=== PATIENT | female | born 1995 | race Caucasian/White ===

== ENCOUNTER → 2016-11-20 | Outpatient (CLI) | payer MEDICAID ==
[~2016-11-20] MED LIST: AMOX500C2 PO; FERR-57 PO; IBUP200C PO; IRON45TA2 PO; PREN1TAB71 PO
--- NOTE | 2016-11-20 16:44 | Diagnostic Imaging Report ---
EXAM: OB ultrasound. INDICATION: survey. COMPARISON: 09/26/2016. FINDINGS: The heart rate is 142 bpm. The placenta is fundal. No placenta previa. The cervix is long and closed. There is no ventriculomegaly. The posterior fossa appears unremarkable. Two umbilical arteries are seen. The urinary bladder appears unremarkable. The spine demonstrates no definite abnormality. The four-chamber view is not well-evaluated due to position. The stomach is seen. No hydronephrosis or cystic mass in the kidneys is noted. The growth parameters are are all around 20 weeks and 1 day, normal for gestational age of 19 weeks and 5 days based on first trimester ultrasound dating. IMPRESSION: Appropriate interval growth. Followup study to evaluate the four-chamber view is recommended within 2-3 weeks. Dictated by: Dictated on workstation # [id number]
== END ==
LOC: RAD 14:41
PROVIDERS: ATTEND Family Medicine
DX: Z36 Encounter for antenatal screening of mother (principal)
CPT/HCPCS: 76805

== ENCOUNTER → 2016-12-26 | Outpatient (CLI) | payer MEDICAID ==
--- NOTE | 2016-12-26 17:25 | Diagnostic Imaging Report ---
INDICATION: Followup survey. COMPARISON: 11/20/2016. FINDINGS: Single live intrauterine fetus is present. Fetus is transverse with head to maternal right. heartbeat of 147 beats per minute. The placenta is posterior and does extend into the lower uterine segment which appears to represent a marginal previa. The heart is visualized though again a good four-chamber view was not obtained. This could be due to body habitus as well as position. IMPRESSION: 1. There is a 24 weeks 6 days by previous ultrasound. Again, the heart was not well visualized. Four-chamber view was not obtained. 2. Low-lying placenta with probable marginal previa. Dictated by: Dictated on workstation # [id number]
== END ==
LOC: RAD 14:05
PROVIDERS: ATTEND Family Medicine
DX: Z36 Encounter for antenatal screening of mother (principal); Z3A.24 24 weeks gestation of pregnancy
CPT/HCPCS: 76805

== ENCOUNTER 2017-01-01 23:00 | Outpatient (CLI) | payer MEDICAID ==
[~2017-01-01] VITALS: Ht 162.6 cm; Wt 119.1 kg
[2017-01-01 23:18] VITALS: BP 109/57
[2017-01-01] MEDS ORDERED: PREN1TAB71 PO (23:37)
[2017-01-01] MEDS ORDERED: ACETAMINOPHEN 500 MG TAB (TYLENOL) PO ONE (23:45)
--- NOTE | 2017-01-02 10:54 | Physician Query-Final Dx ---
RAMÍREZ CASSIDY 01/02/17 1054: Clinic Account Progress/Dx Physician Query: Please give diagnosis Date of Service Jan 01, 2017 at 23:00 YOVANI CARIAS MD 01/05/17 0726: Clinic Account Progress/Dx DIAGNOSIS: Diagnosis 1. Abdominal pain nonspecific 2. Intrauterine at 27 weeks gestation RAMÍREZ CASSIDY Jan 02, 2017 10:54 YOVANI CARIAS MD Jan 05, 2017 07:26
== END 2017-01-01 23:50 | disposition home or self-care (01) ==
LOC: WSo 23:00 → LDRP 23:01 → WSo 23:50
PROVIDERS: ATTEND Family Medicine
DX: O99.89 Other specified diseases and conditions complicating pregnancy, childbirth and the puerperium (principal); R10.9 Unspecified abdominal pain; Z3A.27 27 weeks gestation of pregnancy
CPT/HCPCS: 99213

== ENCOUNTER 2017-02-28 22:54 | Outpatient (CLI) | payer MEDICAID ==
[~2017-02-28] VITALS: Ht 162.6 cm; Wt 122.0 kg
[2017-02-28 23:10] VITALS: BP 124/62
[2017-03-01 00:27] LABS: BILIRUBIN,URINE NEGATIVE (NEGATIVE); KETONES,URINE NEGATIVE (NEGATIVE); LEUKOCYTE ESTERASE ,URINE 1+ (NEGATIVE); NITRITE,URINE NEGATIVE (NEGATIVE); PH,URINE 6 (5-9); PROTEIN,URINE 1+ (NEGATIVE); UROBILINOGEN,URINE 1 MG/DL (NORMAL)
[2017-03-01 00:36] LABS: WBC,URINE 0-2 /HPF
[2017-03-01 00:37] LABS: YEAST,URINE FEW /HPF
--- NOTE | 2017-03-02 11:27 | Physician Query-Final Dx ---
GHAZALA QUICK 03/02/17 1127: Clinic Account Progress/Dx Physician Query: Please give diagnosis Date of Service February 28, 2017 at 22:54 GRACE CARLSON MD 03/05/17 2151: Clinic Account Progress/Dx DIAGNOSIS: Diagnosis Pelvic Cramping Contractions GHAZALA QUICK March 02, 2017 11:27 GRACE CARLSON MD March 05, 2017 21:51
== END 2017-03-01 00:51 | disposition home or self-care (01) ==
LOC: WSo 22:54 → LDRP 22:54 → WSo 03-01 00:51
PROVIDERS: ATTEND Family Medicine
DX: O60.03 Preterm labor without delivery, third trimester (principal); O99.89 Other specified diseases and conditions complicating pregnancy, childbirth and the puerperium; R10.9 Unspecified abdominal pain; Z3A.34 34 weeks gestation of pregnancy
CPT/HCPCS: 81000; 99213

== ENCOUNTER 2017-03-25 12:45 | Outpatient (CLI) | payer MEDICAID ==
[~2017-03-25] VITALS: Ht 162.6 cm; Wt 122.9 kg
[2017-03-25 12:44] VITALS: BP 110/62
[2017-03-25 14:20] VITALS: BP 110/62
--- NOTE | 2017-03-26 13:02 | Physician Query-Final Dx ---
RAMÍREZ CASSIDY 03/26/17 1302: Clinic Account Progress/Dx Physician Query: Please give diagnosis Date of Service Mar 25, 2017 at 12:45 YOVANI CARIAS MD 04/02/17 0734: Clinic Account Progress/Dx DIAGNOSIS: Diagnosis 1. IUP at term, membranes intact and non labor RAMÍREZ CASSIDY Mar 26, 2017 13:02 YOVANI CARIAS MD Apr 02, 2017 07:34
== END 2017-03-25 14:20 | disposition home or self-care (01) ==
LOC: WSo 12:45 → LDRP 12:45 → WSo 14:20
PROVIDERS: ATTEND Family Medicine
DX: O26.93 Pregnancy related conditions, unspecified, third trimester (principal); Z3A.37 37 weeks gestation of pregnancy
CPT/HCPCS: 99213

== ENCOUNTER 2017-04-05 19:43 | Inpatient (IN) | payer MEDICAID ==
[~2017-04-05] VITALS: Ht 162.6 cm; Wt 123.2 kg
[2017-04-05] MEDS ORDERED: AMPICILLIN INJECTION 2,000 MG in NS (IVPB) 50 ML IV SCH (20:22)
[2017-04-05] MEDS ORDERED: NS (IVPB) 50 ML ONE (20:24)
[2017-04-05] MEDS ORDERED: AMPICILLIN 2000 MG INJECTION (IM/IV) ONE (20:25)
[2017-04-05] MEDS ORDERED: ZOLPIDEM 5 MG (AMBIEN) TAB PO PRN (20:30)
[2017-04-05] MEDS ORDERED: MINERAL OIL CONCENTRATE 99.9% 15 ML UDC TOP PRN (20:30)
[2017-04-05] MEDS ORDERED: DINOPROSTONE 10 MG (CERVIDIL) INSERT PV ONE (20:30)
[2017-04-05] MEDS: D5 LR IV SOLUTION 1,000 ML IV SCH (20:48)
[2017-04-05 21:00] VITALS: BP 142/76
[2017-04-05 21:02] LABS: BASOPHILS # (AUTO) 0.1 10^3/uL (0.0-0.1); BASOPHILS % (AUTO) 0 % (0-10); EOSINOPHILS # (AUTO) 0.2 10^3/uL (0.0-0.3); EOSINOPHILS % (AUTO) 1 % (0-10); LYMPHOCYTES # (AUTO) 2.7 X 10^3 (1.0-4.0); LYMPHOCYTES % (AUTO) 14 % (12-44); MEAN CORPUSCULAR HEMOGLOBIN 26 PG (25-34); MEAN CORPUSCULAR HGB CONC 33 G/DL (32-36); MEAN CORPUSCULAR VOLUME 79 FL (80-99); MEAN PLATELET VOLUME 10.9 FL (7.4-10.4); MONOCYTES % (AUTO) 10 % (0-12); NEUTROPHILS # (AUTO) 14.1 X 10^3 (1.8-7.8); NEUTROPHILS % (AUTO) 74 % (42-75); PLATELET COUNT 357 10^3/uL (130-400); RED BLOOD COUNT 4.03 10^6/uL (4.35-5.85); RED CELL DISTRIBUTION WIDTH 14.8 % (10.0-14.5); WHITE BLOOD COUNT 19.1 10^3/uL (4.3-11.0)
[2017-04-05] MEDS ORDERED: CATHETER FLUSH 10 ML SYR IV SCH (22:00)
[2017-04-06] VITALS (42 sets, daily range): BP systolic 78–137; BP diastolic 47–96
[2017-04-06] MEDS ORDERED: BUTORPHANOL INJ 2 MG/ML (STADOL) VIAL IV PRN
[2017-04-06] MEDS: AMPICILLIN INJECTION 1,000 MG in NS (IVPB) 50 ML IV SCH ×3 (00:35→07:55)
[2017-04-06] MEDS: D5 LR IV SOLUTION 1,000 ML IV SCH (06:15)
--- NOTE | 2017-04-06 07:15 | History & Physical-OB ---
OB - Chief Complaint & HPI Date/Time Date of Admission: Date of Admission: Apr 05, 2017 at 19:43 Time Seen by Provider: 07:10 Chief Complaint/History OB-Reason for Admission/Chief: Induction of Labor Hx : 3 Hx Para: 2 Expected Date of Delivery: Apr 11, 2017 Gestational Age in Weeks: 39 Gestational Age in Days: 2 Admission Nurse Assessment Rev: Yes History of Labs GBS positive Allergies and Home Medications Allergies Coded Allergies: No Known Drug Allergies (Unverified , 02/18/13) Home Medications Vit/Iron Fumarate/FA 1 Each Tablet, 1 EACH PO DAILY, (Reported) OB - History Hx of Present Care: Yes Ultrasounds: Normal mid trimester US Obstetrical Complications: None Medical Complications: None Obstetrical History Hx Termination: No Hx Multiple Gestation: No Hx Stillbirth: No Hx Complication: No Hx Induced Hypertens: No Hx Maternal Gestational Diabet: No Delivery History Hx Dystocia: No Hx Large For Gestational Age I: No Hx Small for Gestational Age I: No Hx Section: No Hx Vaginal Delivery Post C-Sec: No Hx Blood Disorders: No Adverse Rxn to Tranfusion: No Patient Past Medical History No chronic medical problems Social History/Family History HIV/AIDS: No Recent Infectious Disease Expo: No Sexually Transmitted Disease: No Alcohol Use: Denies Use Recreational Drug Use: No Immunizations Hepatitis A: No Hepatitis B: Yes Tetanus Booster (TDap): Less than 5yrs Date of Influenza Vaccine: Jun 30, 2016 OB - Admission Exam Physical Exam Date Seen by Provider: Apr 06, 2017 Time Seen by Provider: 07:10 Vitals: Vital Signs 04/06/17 04:00 Temp 98.0 Pulse 88 Resp 20 B/P (MAP) 108/67 O2 Delivery Room Air HEENT: Moist Membranes Heart: Rhythm Normal Lungs: Clear Abdomen: Gravid Cervical Dilatation: 2cm Effacement: 50% Station: -2 Membranes: Intact Heart Rate: 140's Accelerations: Accelerations Present Short Term Variability: Present Traffic Control Flagger Variability: Average (6-25) Contractions on Admission: >10 Minutes Apart Intensity: Mild Lofton Scoring Tool (Modified) Dilation (cm): 1-2cm (1) Effacement (%): 31-51% (1) Descent/Station: -2 (1) Cervix Consistency: Soft (2) Cervix Position: Middle/Mid-Position (1) Add 1 point for: Each previous vaginal delivery (1) Lofton Score: 7 Labs Laboratory Tests Test 04/05/17 20:45 Range/Units White Blood Count 19.1 H 4.3-11.0 10^3/uL Red Blood Count 4.03 L 4.35-5.85 10^6/uL Hemoglobin 10.4 L 11.5-16.0 G/DL Hematocrit 32 L 35-52 % Mean Corpuscular Volume 79 L 80-99 FL Mean Corpuscular Hemoglobin 26 25-34 PG Mean Corpuscular Hemoglobin Concent 33 32-36 G/DL Red Cell Distribution Width 14.8 H 10.0-14.5 % Platelet Count 357 130-400 10^3/uL Mean Platelet Volume 10.9 H 7.4-10.4 FL Neutrophils (%) (Auto) 74 42-75 % Lymphocytes (%) (Auto) 14 12-44 % Monocytes (%) (Auto) 10 0-12 % Eosinophils (%) (Auto) 1 0-10 % Basophils (%) (Auto) 0 0-10 % Neutrophils # (Auto) 14.1 H 1.8-7.8 X 10^3 Lymphocytes # (Auto) 2.7 1.0-4.0 X 10^3 Monocytes # (Auto) 2.0 H 0.0-1.0 X 10^3 Eosinophils # (Auto) 0.2 0.0-0.3 10^3/uL Basophils # (Auto) 0.1 0.0-0.1 10^3/uL OB - Assessment/Plan/Diagnosis Assessment Assessment: induction of labor Plan Plan: Induction (by cervidil) Other Plan -GBS prophylaxis -Patient desires epidural YOVANI CARIAS MD Apr 06, 2017 07:15
[2017-04-06] MEDS ORDERED: SUFENTA 0.6MCG/ML BUPIVA 0.125 100 ML ONE (07:30)
[2017-04-06] MEDS ORDERED: LACTATED RINGERS 1,000 ML IV ONE ×2 (07:42→09:46)
[2017-04-06] MEDS ORDERED: OXYTOCIN/NORMAL SALINE 500 ML IV SCH ×2 (08:06→11:55)
[2017-04-06] MEDS ORDERED: fentaNYL INJECTION 100 MCG/2 ML AMP ONE (09:35)
[2017-04-06] MEDS ORDERED: NALOXONE 0.4 MG/ML 1 ML (NARCAN) VIAL IV PRN ×2 (10:00)
[2017-04-06] MEDS ORDERED: METOCLOPRAMIDE INJ 10 MG/2 ML (REGLAN) IV PRN (10:00)
[2017-04-06] MEDS ORDERED: EPIDURAL (SUFENTA 0.6MCG/ML BUPIVA 0.125%) 100 ML BAG EPI PRN (10:00)
[2017-04-06] MEDS ORDERED: diphenhydrAMINE 50 MG/ML INJ (BENADRYL) IV PRN (10:00)
[2017-04-06] MEDS ORDERED: ONDANSETRON 4 MG/2 ML (SDV) Z0FRAN IV PRN (10:00)
[2017-04-06] MEDS ORDERED: MEPIVACAINE (CARBOCAINE) 2% 50 ML VIAL ONE (11:07)
--- NOTE | 2017-04-06 11:55 | OB Labor & Delivery Record ---
L&D History Date of Service Date of Service: Apr 06, 2017 History Expected Date of Delivery: Apr 11, 2017 Gestational Age in Weeks: 39 Hx : 3 Hx Para: 3 Complications Events: Routine care Operative Indications (Cesarea: N/A-Vaginal Delivery Intrapartal Events: None Other Complications GBS positive vag culture at 36 weeks and treated in labor with ampicillin. L&D Stage1 Stage One Onset of Labor - Date: Apr 06, 2017 Onset of Labor - Time: 07:04 Monitors and Tracing Monitor Mode: Internal Heart Rate: 130 Monitor Accelerations: Uniform Monitor Decelerations: Early Station: -3 Short Term Variability: Present Presentation: Vertex Vital Signs VS - Last 72 Hours, by Label 04/05/17 04/06/17 04/06/17 04/06/17 21:00 01:00 04:00 07:15 Temp 98.7 97.9 98.0 97.1 Pulse 100 86 88 83 Resp 20 20 20 20 B/P (MAP) 142/76 108/65 108/67 135/94 O2 Delivery Room Air Room Air Room Air Room Air 04/06/17 04/06/17 04/06/17 07:30 07:45 08:00 Temp 97.2 Pulse 75 80 80 Resp 20 18 18 B/P (MAP) 135/84 136/91 136/91 O2 Delivery Room Air Room Air Room Air Signs of Distress by FHT Signs of Distress No but irregular heart rhythm noted. Rupture of Membranes Spontaneous Ruture of Membrane: No Amniotic Membrane Rupture Time: 0704 Amniotic Membrane Fluid Desc.: Clear Induction/Anesthesia Epidural Cath Placement - Time: 09:00 L&D Stage2 Stage Two Stage II Date: Apr 06, 2017 Stage II Time: 11:36 Monitors and Tracing Monitor Mode: Internal Heart Rate: 130 Monitor Accelerations: Uniform Monitor Decelerations: None Technical Services Coordinator Variability: Average (6-10) Short Term Variability: Present Position: Left Occiput Anterior Presentation: Vertex Signs of Distress by FHT Signs of Distress no Cord Descript/Complications Cord Vessel Description: 3 Vessels Delivery Type Delivery Method: Spontaneous Vaginal Episiotomy/Perineal Laceration Laceraction(s)/Extensions: No Episiotomy Description: Periurethral Extnsion/lac (R--without repair), Perineal Extension/lac (minor with 2 stiches) Sutures Used: Vicryl Condition of Infant Delivery 1 minute Comment: 8 5 minute Comment: 9 Condition of Condition of Infant: Living Exam: No Observed Abnormalities Resuscitation Resuscitation: N/A - Spontaneous Resp L&D Stage3 Stage Three Stage III Date: Apr 06, 2017 Stage III Time: 11:40 Pictocin Pitocin ml/hr: 125 Placenta Delivery Placenta Delivery: Spontaneous Delivery Summary Summary 200 Condition of Delivery Examined: Cervix Examined Post Hemorrhage: No YOVANI CARIAS MD Apr 06, 2017 11:55
[2017-04-06] MEDS ORDERED: MEASLES,MUMPS,RUBELLA 1 EA INJ SQ ONE (12:00)
[2017-04-06] MEDS ORDERED: WITCH HAZEL(TUCKS) 40 EA JAR TOP PRN (12:00)
[2017-04-06] MEDS ORDERED: APAP 300 MG/CODEINE 30 MG (TYLENOL #3) TAB PO PRN (12:00)
[2017-04-06] MEDS ORDERED: BENZOCAINE/MENTHOL (DERMOPLAST) 56 ML CAN TP PRN (12:00)
[2017-04-06] MEDS ORDERED: TETANUS,DIPTH,PERTUSS P/F (BOOSTRIX) 0.5 ML VIAL IM ONE (12:00)
[2017-04-06] MEDS: IBUPROFEN 600 MG (MOTRIN) TAB PO SCH ×2 (13:07→20:20)
[2017-04-06] MEDS ORDERED: CATHETER FLUSH 10 ML SYR IV SCH (14:00)
[2017-04-07 03:50] VITALS: BP 128/73
[2017-04-07] MEDS: IBUPROFEN 600 MG (MOTRIN) TAB PO SCH ×2 (03:50→10:13)
[2017-04-07] MEDS ORDERED: PRENATAL VITAMIN 1 EA TAB PO SCH (07:00)
[2017-04-07 07:17] LABS: BASOPHILS # (AUTO) 0.1 10^3/uL (0.0-0.1); BASOPHILS % (AUTO) 0 % (0-10); EOSINOPHILS # (AUTO) 0.4 10^3/uL (0.0-0.3); EOSINOPHILS % (AUTO) 2 % (0-10); LYMPHOCYTES # (AUTO) 3.4 X 10^3 (1.0-4.0); LYMPHOCYTES % (AUTO) 18 % (12-44); MEAN CORPUSCULAR HEMOGLOBIN 26 PG (25-34); MEAN CORPUSCULAR HGB CONC 32 G/DL (32-36); MEAN CORPUSCULAR VOLUME 81 FL (80-99); MEAN PLATELET VOLUME 11.3 FL (7.4-10.4); MONOCYTES # (AUTO) 1.7 X 10^3 (0.0-1.0); MONOCYTES % (AUTO) 9 % (0-12); NEUTROPHILS # (AUTO) 13.5 X 10^3 (1.8-7.8); NEUTROPHILS % (AUTO) 71 % (42-75); PLATELET COUNT 307 10^3/uL (130-400); RED BLOOD COUNT 3.69 10^6/uL (4.35-5.85); WHITE BLOOD COUNT 19.1 10^3/uL (4.3-11.0)
--- NOTE | 2017-04-07 07:59 | Discharge Summary ---
Diagnosis/Chief Complaint Date of Admission Apr 05, 2017 at 19:43 Date of Discharge April 07, 2017 Discharge Date: Apr 07, 2017 Discharge Time: 08:00 Admission Diagnosis Admission Diagnosis 1. Intrauterine at 39 weeks gestation Discharge Diagnosis 1. Intrauterine at 39 weeks gestation Reason Hospital Visit 22-year-old 3 now term 3 female who initially presented for induction of labor during the evening of April 05, 2017. Patient was noted to be at 39 weeks 2 days gestation on presentation. Her care was essentially unremarkable. Discharge Summary-OBS Procedures 1. Epidural per anesthesia 2. Spontaneous vaginal delivery 3. Repair of minimal perineal tear midline Discharge Physical Examination Allergies: Coded Allergies: No Known Drug Allergies (Unverified , 02/18/13) Vitals & I&Os Vital Signs Date Time Temp Pulse Resp B/P (MAP) Pulse Ox O2 Delivery O2 Flow Rate FiO2 04/07/17 03:50 96.7 88 18 128/73 97 Room Air General Appearance: Alert, No Acute Distress Respiratory: Clear to Auscultation Cardiovascular: Regular Rate Abdominal: Soft (with uterus firm) Hospital Course following admission patient underwent routine labor coarse. She received epidural and tolerated well. She ultimately went on to deliver a term viable male. Delivery was accomplished on April 06, 2017 at 1126. She had received Pitocin augmentation during the course of labor. See labor and delivery summary for full details. Following delivery patient underwent routine care orders. She tolerated regular diet. She was ambulatory without any complaints of shortness of breath or leg pain. Her hemoglobin on post delivery day number 1 was 9.5. Her hemoglobin on admission was 10.4. Patient was felt ready for dismissal during the afternoon of April 07, 2017. Pending Labs Laboratory Tests 04/07/17 06:58: White Blood Count 19.1, Red Blood Count 3.69, Hemoglobin 9.5, Hematocrit 30, Mean Corpuscular Volume 81, Mean Corpuscular Hemoglobin 26, Mean Corpuscular Hemoglobin Concent 32, Red Cell Distribution Width 15.0, Platelet Count 307, Mean Platelet Volume 11.3, Neutrophils (%) (Auto) 71, Lymphocytes (%) (Auto) 18 , Monocytes (%) (Auto) 9, Eosinophils (%) (Auto) 2, Basophils (%) (Auto) 0, Neutrophils # (Auto) 13.5, Lymphocytes # (Auto) 3.4, Monocytes # (Auto) 1.7, Eosinophils # (Auto) 0.4, Basophils # (Auto) 0.1 Discharge Instructions to patient/family Please see electonic discharge instructions given to patient. Discharge Medications Reviewed and agree with Discharge Medication list on patient's Discharge Instruction sheet Clinical Quality Measures DVT/VTE Risk/Contraindication: Risk Factor Score Per Nursin RFS Level Per Nursing on Admit: 2=Moderate YOVANI CARIAS MD Apr 07, 2017 07:59
[2017-04-07] MEDS ORDERED: IBUP-1773 PO (08:00)
--- NOTE | 2017-04-07 08:01 | Discharge Inst-Women's Service ---
Discharge Inst-Women's Serv Depart Medication/Instructions New, Converted or Re-Newed RX: RX on Chart Consults/Follow Up Additional Follow Up: Yes (with Dr. Carias) Activity Activity: Activity as Tolerated Driving Instructions: You May Drive Nothing Inside Vagina: No Johnston (for 6 weeks) Diet Discharge Diet: Regular Diet Return to The Hospital For: as below Symptoms to Report to : Bleeding Excessive, Pain Increased, Fever Over 101 Degrees F, Vaginal Discharge Foul For Any Problems or Questions: Contact Your Physician YVOANI CARIAS MD Apr 07, 2017 08:01
[2017-04-07 10:11] VITALS: BP 114/71
[2017-04-07] MEDS ORDERED: TETANUS,DIPTH,PERTUSS P/F (BOOSTRIX) 0.5 ML VIAL IM ONE (12:57)
[2017-04-08] MEDS ORDERED: fentaNYL INJECTION 100 MCG/2 ML AMP ONE (06:43)
[2017-04-08] MEDS ORDERED: proPOfol 200 MG/20 ML (DIPRIVAN) VIAL IV ONE (06:43)
[2017-04-08] MEDS ORDERED: ROCURONIUM 50 MG/5 ML (ZEMURON) VIAL IV ONE (06:43)
[2017-04-08] MEDS ORDERED: ONDANSETRON 4 MG/2 ML (SDV) Z0FRAN ONE (06:43)
[2017-04-08] MEDS ORDERED: LIDOCAINE PF 0.5% 50 ML (XYLOCAINE) VIAL ONE (06:43)
[2017-04-08] MEDS ORDERED: MIDAZOLAM 2 MG/2 ML (VERSED) VIAL ONE (06:43)
[2017-04-08] MEDS ORDERED: SEVOFLURANE (ULTANE) 15 ML INHAL SOLN ONE (06:43)
[2017-04-08] MEDS ORDERED: DEXAMETHASONE PF 10 MG/ML (DECADRON) VIAL ONE (06:43)
--- OUTSIDE RECORDS SUMMARY | 2017-04-08 17:38 | XMS REPORT ---
Author Author CURLY VERDUZCO Organization [employer] Address Unknown Phone Unavailable Care Team Providers Care Credit Verification Clerk Name Role Phone CURLY VERDUZCO CP Unavailable Allergies, Adverse Reactions, Alerts Substance Reaction Event Type N.K.D.A. Info Not Available Non Drug Allergy Problems Problem Type Condition Code Onset Dates Condition Status Assessment Breast pain N64.4 Active Medications Medication Code System Code Instructions Start Date End Date Status Dosage Ibuprofen [facility] [address]-72 800 MG Orally Three times a day Sep 12, 2015 Oct 12, 2015 1 tablet Depo-Provera [facility] [address]-06 150 mg/mL Jul 17, 2014 inject 150 mg by intramuscular route every 3 months Procedures Procedure Coding System Code Date Office Visit, Est Pt., Level 3 CPT-4 87788 Sep 12, 2015 Vital Signs Date/Time: Sep 12, 2015 Temperature 99.2 F Weight 255.5 lbs Height 63 in BMI 45.25 Index Blood Pressure Diastolic 76 mmHg Blood Pressure Systolic 112 mmHg Cardiac Monitoring Heart Rate 92 bpm Results No Known Results Summary Purpose [employer] Submission
--- OUTSIDE RECORDS SUMMARY | 2017-04-08 17:39 | XMS REPORT | Continuity of Care Document ---
Author Author [facility] Organization [facility] Address Unknown Phone Unavailable Allergies Active Description Code Type Severity Reaction Onset Reported/Identified Relationship to Patient Clinical Status Yes No Known Drug Allergies [id number] Drug Allergy Unknown N/ A 02/18/2013 Medications Problems Date Dx Coded Attending Type Code Diagnosis Diagnosed By 10/29/2009 USMAN MARIE MD V25.9 Gynecologic Services Contraceptive Management 10/29/2009 YOLA CASTILLO APRN V25.9 Gynecologic Services Contraceptive Management 10/29/2009 USMAN MARIE MD V25.9 Gynecologic Services Contraceptive Management 10/29/2009 USMAN MARIE MD V25.9 Gynecologic Services Contraceptive Management 10/29/2009 V25.9 Gynecologic Services Contraceptive Management 10/29/2009 USMAN MARIE MD V25.9 Gynecologic Services Contraceptive Management 10/29/2009 V25.9 Gynecologic Services Contraceptive Management 10/29/2009 V25.9 Gynecologic Services Contraceptive Management 10/29/2009 V25.9 Gynecologic Services Contraceptive Management 10/29/2009 V25.9 Gynecologic Services Contraceptive Management 10/29/2009 V25.9 Gynecologic Services Contraceptive Management 10/29/2009 V25.9 Gynecologic Services Contraceptive Management 10/29/2009 V25.9 Gynecologic Services Contraceptive Management 10/29/2009 V25.9 Gynecologic Services Contraceptive Management 10/29/2009 JESSICA FARRELL DO V25.9 Gynecologic Services Contraceptive Management 10/29/2009 JESSICA FARRELL DO V25.9 Gynecologic Services Contraceptive Management 10/29/2009 ELIAZAR MCKEON APRN V25.9 Gynecologic Services Contraceptive Management 10/29/2009 YOLA CASTILLO APRN V25.9 Gynecologic Services Contraceptive Management 10/29/2009 JESSICA FARRELL DO V25.9 Gynecologic Services Contraceptive Management 10/29/2009 JESSICA FARRELL DO V25.9 Gynecologic Services Contraceptive Management 10/29/2009 JESSICA FARRELL DO V25.9 Gynecologic Services Contraceptive Management 10/29/2009 ELIAZAR MCKEON APRN V25.9 Gynecologic Services Contraceptive Management 01/14/2010 USMAN MARIE MD V25.49 SURVEILLANCE OF OTHER PREVIOUSLY PRESCRIBED CONTRACEPTIVE METHODS 01/14/2010 YOLA CASTILLO APRN V25.49 SURVEILLANCE OF OTHER PREVIOUSLY PRESCRIBED CONTRACEPTIVE METHODS 01/14/2010 USMAN MARIE MD V25.49 SURVEILLANCE OF OTHER PREVIOUSLY PRESCRIBED CONTRACEPTIVE METHODS 01/14/2010 USMAN MARIE MD V25.49 SURVEILLANCE OF OTHER PREVIOUSLY PRESCRIBED CONTRACEPTIVE METHODS 01/14/2010 V25.49 SURVEILLANCE OF OTHER PREVIOUSLY PRESCRIBED CONTRACEPTIVE METHODS 01/14/2010 USMAN MARIE MD V25.49 SURVEILLANCE OF OTHER PREVIOUSLY PRESCRIBED CONTRACEPTIVE METHODS 01/14/2010 V25.49 SURVEILLANCE OF OTHER PREVIOUSLY PRESCRIBED CONTRACEPTIVE METHODS 01/14/2010 V25.49 SURVEILLANCE OF OTHER PREVIOUSLY PRESCRIBED CONTRACEPTIVE METHODS 01/14/2010 V25.49 SURVEILLANCE OF OTHER PREVIOUSLY PRESCRIBED CONTRACEPTIVE METHODS 01/14/2010 V25.49 SURVEILLANCE OF OTHER PREVIOUSLY PRESCRIBED CONTRACEPTIVE METHODS 01/14/2010 V25.49 SURVEILLANCE OF OTHER PREVIOUSLY PRESCRIBED CONTRACEPTIVE METHODS 01/14/2010 V25.49 SURVEILLANCE OF OTHER PREVIOUSLY PRESCRIBED CONTRACEPTIVE METHODS 01/14/2010 V25.49 SURVEILLANCE OF OTHER PREVIOUSLY PRESCRIBED CONTRACEPTIVE METHODS 01/14/2010 V25.49 SURVEILLANCE OF OTHER PREVIOUSLY PRESCRIBED CONTRACEPTIVE METHODS 01/14/2010 BUD DO JESSICA K V25.49 SURVEILLANCE OF OTHER PREVIOUSLY PRESCRIBED CONTRACEPTIVE METHODS 01/14/2010 BUD DO JESSICA K V25.49 SURVEILLANCE OF OTHER PREVIOUSLY PRESCRIBED CONTRACEPTIVE METHODS 01/14/2010 ELIAZAR MCKEON APRN V25.49 SURVEILLANCE OF OTHER PREVIOUSLY PRESCRIBED CONTRACEPTIVE METHODS 01/14/2010 YOLA CASTILLO APRN V25.49 SURVEILLANCE OF OTHER PREVIOUSLY PRESCRIBED CONTRACEPTIVE METHODS 01/14/2010 BUD DO JESSICA K V25.49 SURVEILLANCE OF OTHER PREVIOUSLY PRESCRIBED CONTRACEPTIVE METHODS 01/14/2010 FARRELL DO JESSICA K V25.49 SURVEILLANCE OF OTHER PREVIOUSLY PRESCRIBED CONTRACEPTIVE METHODS 01/14/2010 FARRELL DO JESSICA K V25.49 SURVEILLANCE OF OTHER PREVIOUSLY PRESCRIBED CONTRACEPTIVE METHODS 01/14/2010 ELIAZAR MCKEON APRN V25.49 SURVEILLANCE OF OTHER PREVIOUSLY PRESCRIBED CONTRACEPTIVE METHODS 12/26/2010 USMAN MARIE MD V72.31 MOLD FILLING OPERATOR EXAM, ROUTINE 12/26/2010 YOLA CASTILLO APRN V72.31 MOLD FILLING OPERATOR EXAM, ROUTINE 12/26/2010 USMAN MARIE MD V72.31 MOLD FILLING OPERATOR EXAM, ROUTINE 12/26/2010 CYNTHIA MILLER, USMAN V72.31 MOLD FILLING OPERATOR EXAM, ROUTINE 12/26/2010 V72.31 MOLD FILLING OPERATOR EXAM, ROUTINE 12/26/2010 CYNTHIA MILLER, USMAN V72.31 MOLD FILLING OPERATOR EXAM, ROUTINE 12/26/2010 V72.31 MOLD FILLING OPERATOR EXAM, ROUTINE 12/26/2010 V72.31 MOLD FILLING OPERATOR EXAM, ROUTINE 12/26/2010 V72.31 MOLD FILLING OPERATOR EXAM, ROUTINE 12/26/2010 V72.31 MOLD FILLING OPERATOR EXAM, ROUTINE 12/26/2010 V72.31 MOLD FILLING OPERATOR EXAM, ROUTINE 12/26/2010 V72.31 MOLD FILLING OPERATOR EXAM, ROUTINE 12/26/2010 V72.31 MOLD FILLING OPERATOR EXAM, ROUTINE 12/26/2010 V72.31 MOLD FILLING OPERATOR EXAM, ROUTINE 12/26/2010 JESSICA FARRELL DO V72.31 MOLD FILLING OPERATOR EXAM, ROUTINE 12/26/2010 JESSICA FARRELL DO V72.31 MOLD FILLING OPERATOR EXAM, ROUTINE 12/26/2010 ELIAZAR MCKEON APRN V72.31 MOLD FILLING OPERATOR EXAM, ROUTINE 12/26/2010 YOLA CASTILLO APRN V72.31 MOLD FILLING OPERATOR EXAM, ROUTINE 12/26/2010 BUD DOJESSICA V72.31 MOLD FILLING OPERATOR EXAM, ROUTINE 12/26/2010 JESSICA FARRELL DO V72.31 MOLD FILLING OPERATOR EXAM, ROUTINE 12/26/2010 JESSICA FARRELL DO V72.31 MOLD FILLING OPERATOR EXAM, ROUTINE 12/26/2010 ELIAZAR MCKEON APRN V72.31 MOLD FILLING OPERATOR EXAM, ROUTINE 06/25/2011 USMAN MARIE MD V25.01 CONTRACEPTION COUNSELING- ORAL CONTRACEPTION 06/25/2011 USMAN MARIE MD V65.45 STD COUNSELING 06/25/2011 YOLA CASTILLO APRN V25.01 CONTRACEPTION COUNSELING- ORAL CONTRACEPTION 06/25/2011 YOLA CASTILLO APRN V65.45 STD COUNSELING 06/25/2011 USMAN MARIE MD V25.01 CONTRACEPTION COUNSELING- ORAL CONTRACEPTION 06/25/2011 USMAN MARIE MD V65.45 STD COUNSELING 06/25/2011 USMAN MARIE MD V25.01 CONTRACEPTION COUNSELING- ORAL CONTRACEPTION 06/25/2011 USMAN MARIE MD V65.45 STD COUNSELING 06/25/2011 V25.01 CONTRACEPTION COUNSELING- ORAL CONTRACEPTION 06/25/2011 V65.45 STD COUNSELING 06/25/2011 USMAN MARIE MD V25.01 CONTRACEPTION COUNSELING- ORAL CONTRACEPTION 06/25/2011 USMAN MARIE MD V65.45 STD COUNSELING 06/25/2011 V25.01 CONTRACEPTION COUNSELING- ORAL CONTRACEPTION 06/25/2011 V65.45 STD COUNSELING 06/25/2011 V25.01 CONTRACEPTION COUNSELING- ORAL CONTRACEPTION 06/25/2011 V65.45 STD COUNSELING 06/25/2011 V25.01 CONTRACEPTION COUNSELING- ORAL CONTRACEPTION 06/25/2011 V65.45 STD COUNSELING 06/25/2011 V25.01 CONTRACEPTION COUNSELING- ORAL CONTRACEPTION 06/25/2011 V65.45 STD COUNSELING 06/25/2011 V25.01 CONTRACEPTION COUNSELING- ORAL CONTRACEPTION 06/25/2011 V65.45 STD COUNSELING 06/25/2011 V25.01 CONTRACEPTION COUNSELING- ORAL CONTRACEPTION 06/25/2011 V65.45 STD COUNSELING 06/25/2011 V25.01 CONTRACEPTION COUNSELING- ORAL CONTRACEPTION 06/25/2011 V65.45 STD COUNSELING 06/25/2011 V25.01 CONTRACEPTION COUNSELING- ORAL CONTRACEPTION 06/25/2011 V65.45 STD COUNSELING 06/25/2011 FARRELL DO JESSICA K V25.01 CONTRACEPTION COUNSELING- ORAL CONTRACEPTION 06/25/2011 FARRELL DO JESSICA K V65.45 STD COUNSELING 06/25/2011 FARRELL DO JESSICA K V25.01 CONTRACEPTION COUNSELING- ORAL CONTRACEPTION 06/25/2011 AFRRELL DO JESSICA K V65.45 STD COUNSELING 06/25/2011 ELIAZAR MCKEON APRN V25.01 CONTRACEPTION COUNSELING- ORAL CONTRACEPTION 06/25/2011 ELIAZAR MCKEON APRN V65.45 STD COUNSELING 06/25/2011 YOLA CASTILOL APRN V25.01 CONTRACEPTION COUNSELING- ORAL CONTRACEPTION 06/25/2011 YOLA CASTILLO APRN V65.45 STD COUNSELING 06/25/2011 FARRELL DO JESSICA K V25.01 CONTRACEPTION COUNSELING- ORAL CONTRACEPTION 06/25/2011 FARRELL DO JESSICA K V65.45 STD COUNSELING 06/25/2011 FARRELL DO JESSICA K V25.01 CONTRACEPTION COUNSELING- ORAL CONTRACEPTION 06/25/2011 FARRELL DO JESSICA K V65.45 STD COUNSELING 06/25/2011 FARRELL DO JESSICA K V25.01 CONTRACEPTION COUNSELING- ORAL CONTRACEPTION 06/25/2011 FARRELL DO JESSICA K V65.45 STD COUNSELING 06/25/2011 ELIAZAR MCKEON APRN V25.01 CONTRACEPTION COUNSELING- ORAL CONTRACEPTION 06/25/2011 ELIAZAR MCKEON APRN V65.45 STD COUNSELING 10/14/2011 USMAN MARIE MD 623.5 vaginal discharge 10/14/2011 USMAN MARIE MD 626.1 OLIGOMENORRHEA 10/14/2011 USMAN MARIE MD V74.5 visit for: screening exam bact/spirochetal venereal disease 10/14/2011 JONATHAN FALCON YOLA L 623.5 vaginal discharge 10/14/2011 JONATHAN FALCON YOLA L 626.1 OLIGOMENORRHEA 10/14/2011 JONATHAN FALCON YOLA L V74.5 visit for: screening exam bact/ spirochetal venereal disease 10/14/2011 USMAN MARIE MD 623.5 vaginal discharge 10/14/2011 USMAN MARIE MD 626.1 OLIGOMENORRHEA 10/14/2011 USMAN MARIE MD V74.5 visit for: screening exam bact/spirochetal venereal disease 10/14/2011 USMAN MARIE MD 623.5 vaginal discharge 10/14/2011 USMAN MARIE MD 626.1 OLIGOMENORRHEA 10/14/2011 USMAN MARIE MD V74.5 visit for: screening exam bact/spirochetal venereal disease 10/14/2011 623.5 vaginal discharge 10/14/2011 626.1 OLIGOMENORRHEA 10/14/2011 V74.5 visit for: screening exam bact/spirochetal venereal disease 10/14/2011 USMAN MARIE MD 623.5 vaginal discharge 10/14/2011 USMAN MARIE MD 626.1 OLIGOMENORRHEA 10/14/2011 USMAN MARIE MD V74.5 visit for: screening exam bact/spirochetal venereal disease 10/14/2011 623.5 vaginal discharge 10/14/2011 626.1 OLIGOMENORRHEA 10/14/2011 V74.5 visit for: screening exam bact/spirochetal venereal disease 10/14/2011 623.5 vaginal discharge 10/14/2011 626.1 OLIGOMENORRHEA 10/14/2011 V74.5 visit for: screening exam bact/spirochetal venereal disease 10/14/2011 623.5 vaginal discharge 10/14/2011 626.1 OLIGOMENORRHEA 10/14/2011 V74.5 visit for: screening exam bact/spirochetal venereal disease 10/14/2011 623.5 vaginal discharge 10/14/2011 626.1 OLIGOMENORRHEA 10/14/2011 V74.5 visit for: screening exam bact/spirochetal venereal disease 10/14/2011 623.5 vaginal discharge 10/14/2011 626.1 OLIGOMENORRHEA 10/14/2011 V74.5 visit for: screening exam bact/spirochetal venereal disease 10/14/2011 623.5 vaginal discharge 10/14/2011 626.1 OLIGOMENORRHEA 10/14/2011 V74.5 visit for: screening exam bact/spirochetal venereal disease 10/14/2011 623.5 vaginal discharge 10/14/2011 626.1 OLIGOMENORRHEA 10/14/2011 V74.5 visit for: screening exam bact/spirochetal venereal disease 10/14/2011 623.5 vaginal discharge 10/14/2011 626.1 OLIGOMENORRHEA 10/14/2011 V74.5 visit for: screening exam bact/spirochetal venereal disease 10/14/2011 JESSICA FARRELL DO 623.5 vaginal discharge 10/14/2011 JESSICA FARRELL DO 626.1 OLIGOMENORRHEA 10/14/2011 JESSICA FARRELL DO V74.5 visit for: screening exam bact/spirochetal venereal disease 10/14/2011 JESSICA FARRELL DO 623.5 vaginal discharge 10/14/2011 JESSICA FARRELL DO 626.1 OLIGOMENORRHEA 10/14/2011 JESSICA FARRELL DO V74.5 visit for: screening exam bact/spirochetal venereal disease 10/14/2011 ELIAZAR MCKEON APRN 623.5 vaginal discharge 10/14/2011 ELAIZAR MCKEON APRN 626.1 OLIGOMENORRHEA 10/14/2011 ELIAZAR MCKEON APRN V74.5 visit for: screening exam bact/ spirochetal venereal disease 10/14/2011 YOLA CASTILLO APRN 623.5 vaginal discharge 10/14/2011 YOLA CASTILLO APRN 626.1 OLIGOMENORRHEA 10/14/2011 YOLA CASTILLO APRN V74.5 visit for: screening exam bact/ spirochetal venereal disease 10/14/2011 FARRELL DOTHONGA K 623.5 vaginal discharge 10/14/2011 BUD BRAVO JESSICA K 626.1 OLIGOMENORRHEA 10/14/2011 FARRELL DO JESSICA K V74.5 visit for: screening exam bact/spirochetal venereal disease 10/14/2011 FARRELL THONG BRAVOA K 623.5 vaginal discharge 10/14/2011 FARRELL DO JESSICA K 626.1 OLIGOMENORRHEA 10/14/2011 FARRELL DO JESSICA K V74.5 visit for: screening exam bact/spirochetal venereal disease 10/14/2011 FARRELL THONG BRAVOA K 623.5 vaginal discharge 10/14/2011 FARRELL THONG BRAVOA K 626.1 OLIGOMENORRHEA 10/14/2011 FARRELL DO JESSICA K V74.5 visit for: screening exam bact/spirochetal venereal disease 10/14/2011 ELIAZAR MCKEON APRN 623.5 vaginal discharge 10/14/2011 ELIAZAR MCKEON APRN 626.1 OLIGOMENORRHEA 10/14/2011 ELIAZAR MCKEON APRN V74.5 visit for: screening exam bact/ spirochetal venereal disease 12/23/2011 USMAN MARIE MD 564.00 CONSTIPATION 12/23/2011 USMAN MARIE MD 625.3 severe menstrual pain (dysmenorrhea) 12/23/2011 YOLA CASTILLO APRN 564.00 CONSTIPATION 12/23/2011 YOLA CASTILLO APRN 625.3 severe menstrual pain (dysmenorrhea) 12/23/2011 USMAN MARIE MD 564.00 CONSTIPATION 12/23/2011 USMAN MARIE MD 625.3 severe menstrual pain (dysmenorrhea) 12/23/2011 USMAN MARIE MD 564.00 CONSTIPATION 12/23/2011 USMAN MARIE MD 625.3 severe menstrual pain (dysmenorrhea) 12/23/2011 564.00 CONSTIPATION 12/23/2011 625.3 severe menstrual pain (dysmenorrhea) 12/23/2011 USMAN MARIE MD 564.00 CONSTIPATION 12/23/2011 USMAN MARIE MD 625.3 severe menstrual pain (dysmenorrhea) 12/23/2011 564.00 CONSTIPATION 12/23/2011 625.3 severe menstrual pain (dysmenorrhea) 12/23/2011 564.00 CONSTIPATION 12/23/2011 625.3 severe menstrual pain (dysmenorrhea) 12/23/2011 564.00 CONSTIPATION 12/23/2011 625.3 severe menstrual pain (dysmenorrhea) 12/23/2011 564.00 CONSTIPATION 12/23/2011 625.3 severe menstrual pain (dysmenorrhea) 12/23/2011 564.00 CONSTIPATION 12/23/2011 625.3 severe menstrual pain (dysmenorrhea) 12/23/2011 564.00 CONSTIPATION 12/23/2011 625.3 severe menstrual pain (dysmenorrhea) 12/23/2011 564.00 CONSTIPATION 12/23/2011 625.3 severe menstrual pain (dysmenorrhea) 12/23/2011 564.00 CONSTIPATION 12/23/2011 625.3 severe menstrual pain (dysmenorrhea) 12/23/2011 FARRELL DO, JESSICA K 564.00 CONSTIPATION 12/23/2011 FARRELL DO, JESSICA K 625.3 severe menstrual pain (dysmenorrhea) 12/23/2011 FARRELL DO, JESSICA K 564.00 CONSTIPATION 12/23/2011 FARRELL DO, JESSICA K 625.3 severe menstrual pain (dysmenorrhea) 12/23/2011 ELIAZAR MCKEON APRN 564.00 CONSTIPATION 12/23/2011 ELIAZAR MCKEON APRN 625.3 severe menstrual pain (dysmenorrhea) 12/23/2011 YOLA CASTILLO APRN 564.00 CONSTIPATION 12/23/2011 YOLA CASTILLO APRN 625.3 severe menstrual pain (dysmenorrhea) 12/23/2011 FARRELL DO, JESSICA K 564.00 CONSTIPATION 12/23/2011 FARRELL DO, JESSICA K 625.3 severe menstrual pain (dysmenorrhea) 12/23/2011 FARRELL DO, JESSICA K 564.00 CONSTIPATION 12/23/2011 FARRELL DO, JESSICA K 625.3 severe menstrual pain (dysmenorrhea) 12/23/2011 FARRELL DO, JESSICA K 564.00 CONSTIPATION 12/23/2011 JESSICA FARRELL DO 625.3 severe menstrual pain (dysmenorrhea) 12/23/2011 ELIAZAR MCKEON APRN 564.00 CONSTIPATION 12/23/2011 ELIAZAR MCKEON APRN 625.3 severe menstrual pain (dysmenorrhea) 12/25/2011 USMAN MARIE MD 462 PHARYNGITIS ACUTE 12/25/2011 YOLA CASTILLO APRN 462 PHARYNGITIS ACUTE 12/25/2011 USMAN MARIE MD 462 PHARYNGITIS ACUTE 12/25/2011 USMAN MARIE MD 462 PHARYNGITIS ACUTE 12/25/2011 462 PHARYNGITIS ACUTE 12/25/2011 USMAN MARIE MD 462 PHARYNGITIS ACUTE 12/25/2011 462 PHARYNGITIS ACUTE 12/25/2011 462 PHARYNGITIS ACUTE 12/25/2011 462 PHARYNGITIS ACUTE 12/25/2011 462 PHARYNGITIS ACUTE 12/25/2011 462 PHARYNGITIS ACUTE 12/25/2011 462 PHARYNGITIS ACUTE 12/25/2011 462 PHARYNGITIS 12/25/2011 462 PHARYNGITIS 12/25/2011 JESSICA FARRELL DO 462 PHARYNGITIS 12/25/2011 JESSICA FARRELL DO 462 PHARYNGITIS 12/25/2011 ELIAZAR MCKEON APRN 462 PHARYNGITIS 12/25/2011 YOLA CASTILLO APRN 462 PHARYNGITIS ACUTE 12/25/2011 JESSICA FARRELL DO 462 PHARYNGITIS 12/25/2011 JESSICA FARRELL DO 462 PHARYNGITIS 12/25/2011 JESSICA FARRELL DO 462 PHARYNGITIS 12/25/2011 ELIAZAR MCKEON APRN 462 PHARYNGITIS 05/31/2012 USMAN MARIE MD 724.5 BACK PAIN, GENERAL 05/31/2012 YOLA CASTILLO APRN 724.5 BACK PAIN, GENERAL 05/31/2012 USMAN MARIE MD 724.5 BACK PAIN, GENERAL 05/31/2012 USMAN MARIE MD 724.5 BACK PAIN, GENERAL 05/31/2012 724.5 BACK PAIN, GENERAL 05/31/2012 USMAN MARIE MD 724.5 BACK PAIN, GENERAL 05/31/2012 724.5 BACK PAIN, GENERAL 05/31/2012 724.5 BACK PAIN, GENERAL 05/31/2012 724.5 BACK PAIN, GENERAL 05/31/2012 724.5 BACK PAIN, GENERAL 05/31/2012 724.5 BACK PAIN, GENERAL 05/31/2012 724.5 BACK PAIN, GENERAL 05/31/2012 724.5 BACK PAIN, GENERAL 05/31/2012 724.5 BACK PAIN, GENERAL 05/31/2012 FARRELL DO JESSICA K 724.5 BACK PAIN, GENERAL 05/31/2012 FARRELL DO, JESSICA K 724.5 BACK PAIN, GENERAL 05/31/2012 ELIAZAR MCKEON APRN 724.5 BACK PAIN, GENERAL 05/31/2012 YOLA CASTILLO APRN 724.5 BACK PAIN, GENERAL 05/31/2012 FARRELL DO JESSICA K 724.5 BACK PAIN, GENERAL 05/31/2012 FARRELL DOTHONGA K 724.5 BACK PAIN, GENERAL 05/31/2012 FARRELL DOTHONGA K 724.5 BACK PAIN, GENERAL 05/31/2012 ELIAZAR MCKEON APRN 724.5 BACK PAIN, GENERAL 06/15/2012 USMAN MARIE MD 477.0 ALLERGIC RHINITIS - POLLEN 06/15/2012 YOLA CASTILLO APRN 477.0 ALLERGIC RHINITIS - POLLEN 06/15/2012 USMAN MARIE MD 477.0 ALLERGIC RHINITIS - POLLEN 06/15/2012 USMAN MARIE MD 477.0 ALLERGIC RHINITIS - POLLEN 06/15/2012 477.0 ALLERGIC RHINITIS - POLLEN 06/15/2012 USMAN MARIE MD 477.0 ALLERGIC RHINITIS - POLLEN 06/15/2012 477.0 ALLERGIC RHINITIS - POLLEN 06/15/2012 477.0 ALLERGIC RHINITIS - POLLEN 06/15/2012 477.0 ALLERGIC RHINITIS - POLLEN 06/15/2012 477.0 ALLERGIC RHINITIS - POLLEN 06/15/2012 477.0 ALLERGIC RHINITIS - POLLEN 06/15/2012 477.0 ALLERGIC RHINITIS - POLLEN 06/15/2012 477.0 ALLERGIC RHINITIS - POLLEN 06/15/2012 477.0 ALLERGIC RHINITIS - POLLEN 06/15/2012 JESSICA FARRELL DO 477.0 ALLERGIC RHINITIS - POLLEN 06/15/2012 FARRELL DO, JESSICA K 477.0 ALLERGIC RHINITIS - POLLEN 06/15/2012 ELIAZAR MCKEON APRN 477.0 ALLERGIC RHINITIS - POLLEN 06/15/2012 YOLA CASTILLO APRN 477.0 ALLERGIC RHINITIS - POLLEN 06/15/2012 FARRELL DO, JESSICA K 477.0 ALLERGIC RHINITIS - POLLEN 06/15/2012 FARRELL DO, JESSICA K 477.0 ALLERGIC RHINITIS - POLLEN 06/15/2012 FARRELL DO, JESSICA K 477.0 ALLERGIC RHINITIS - POLLEN 06/15/2012 ELIAZAR MCKEON APRN 477.0 ALLERGIC RHINITIS - POLLEN 07/20/2012 USMAN MARIE MD V72.42 TEST POSITIVE RESULT 07/20/2012 YOLA CASTILLO APRN V72.42 TEST POSITIVE RESULT 07/20/2012 USMAN MARIE MD V72.42 TEST POSITIVE RESULT 07/20/2012 USMAN MARIE MD V72.42 TEST POSITIVE RESULT 07/20/2012 V72.42 TEST POSITIVE RESULT 07/20/2012 USMAN MARIE MD V72.42 TEST POSITIVE RESULT 07/20/2012 V72.42 TEST POSITIVE RESULT 07/20/2012 V72.42 TEST POSITIVE RESULT 07/20/2012 V72.42 TEST POSITIVE RESULT 07/20/2012 V72.42 TEST POSITIVE RESULT 07/20/2012 V72.42 TEST POSITIVE RESULT 07/20/2012 V72.42 TEST POSITIVE RESULT 07/20/2012 V72.42 TEST POSITIVE RESULT 07/20/2012 V72.42 TEST POSITIVE RESULT 07/20/2012 FARRELL DO, JESSICA K V72.42 TEST POSITIVE RESULT 07/20/2012 FARRELL DO, JESSICA K V72.42 TEST POSITIVE RESULT 07/20/2012 ELIAZAR MCKEON APRN V72.42 TEST POSITIVE RESULT 07/20/2012 YOLA CASTILLO APRN V72.42 TEST POSITIVE RESULT 07/20/2012 FARRELL DO, JESSICA K V72.42 TEST POSITIVE RESULT 07/20/2012 FARRELL DO, JESSICA K V72.42 TEST POSITIVE RESULT 07/20/2012 FARRELL DO, JESSICA K V72.42 TEST POSITIVE RESULT 07/20/2012 ELIAZAR MCKEON APRN V72.42 TEST POSITIVE RESULT 08/04/2012 USMAN MARIE MD V04.81 FLU DX (3 YRS AND ABOVE, IM) 08/04/2012 USMAN MARIE MD V22.0 , NORMAL FIRST 08/04/2012 YOLA CASTILLO APRN V04.81 FLU DX (3 YRS AND ABOVE, IM) 08/04/2012 YOLA CASTILLO APRN V22.0 , NORMAL FIRST 08/04/2012 USMAN MARIE MD V04.81 FLU DX (3 YRS AND ABOVE, IM) 08/04/2012 USMAN MARIE MD V22.0 , NORMAL FIRST 08/04/2012 USMAN MARIE MD V04.81 FLU DX (3 YRS AND ABOVE, IM) 08/04/2012 USMAN MARIE MD V22.0 , NORMAL FIRST 08/04/2012 V04.81 FLU DX (3 YRS AND ABOVE, IM) 08/04/2012 V22.0 , NORMAL FIRST 08/04/2012 USMAN MARIE MD V04.81 FLU DX (3 YRS AND ABOVE, IM) 08/04/2012 USMAN MARIE MD V22.0 , NORMAL FIRST 08/04/2012 V04.81 FLU DX (3 YRS AND ABOVE, IM) 08/04/2012 V22.0 , NORMAL FIRST 08/04/2012 V04.81 FLU DX (3 YRS AND ABOVE, IM) 08/04/2012 V22.0 , NORMAL FIRST 08/04/2012 V04.81 FLU DX (3 YRS AND ABOVE, IM) 08/04/2012 V22.0 , NORMAL FIRST 08/04/2012 V04.81 FLU DX (3 YRS AND ABOVE, IM) 08/04/2012 V22.0 , NORMAL FIRST 08/04/2012 V04.81 FLU DX (3 YRS AND ABOVE, IM) 08/04/2012 V22.0 , NORMAL FIRST 08/04/2012 V04.81 FLU DX (3 YRS AND ABOVE, IM) 08/04/2012 V22.0 , NORMAL FIRST 08/04/2012 V04.81 FLU DX (3 YRS AND ABOVE, IM) 08/04/2012 V22.0 , NORMAL FIRST 08/04/2012 V04.81 FLU DX (3 YRS AND ABOVE, IM) 08/04/2012 V22.0 , NORMAL FIRST 08/04/2012 FARRELL DO, JESSICA K V04.81 FLU DX (3 YRS AND ABOVE, IM) 08/04/2012 FARRELL DO, JESSICA K V22.0 , NORMAL FIRST 08/04/2012 FARRELL DO, JESSICA K V04.81 FLU DX (3 YRS AND ABOVE, IM) 08/04/2012 FARRELL DO, JESSICA K V22.0 , NORMAL FIRST 08/04/2012 ELIAZAR MCKEON APRN V04.81 FLU DX (3 YRS AND ABOVE, IM) 08/04/2012 ELIAZAR MCKEON APRN V22.0 , NORMAL FIRST 08/04/2012 YOLA CASTILLO APRN V04.81 FLU DX (3 YRS AND ABOVE, IM) 08/04/2012 YOLA CASTILLO APRN V22.0 , NORMAL FIRST 08/04/2012 FARRELL DO, JESSICA K V04.81 FLU DX (3 YRS AND ABOVE, IM) 08/04/2012 FARRELL DO, JESSICA K V22.0 , NORMAL FIRST 08/04/2012 FARRELL DO, JESSICA K V04.81 FLU DX (3 YRS AND ABOVE, IM) 08/04/2012 FARRELL DO, JESSICA K V22.0 , NORMAL FIRST 08/04/2012 FARRELL DO, JESSICA K V04.81 FLU DX (3 YRS AND ABOVE, IM) 08/04/2012 FARRELL DO, JESSICA K V22.0 , NORMAL FIRST 08/04/2012 ELIAZAR MCKEON APRN V04.81 FLU DX (3 YRS AND ABOVE, IM) 08/04/2012 ELIAZAR MCKEON APRN V22.0 , NORMAL FIRST 10/05/2012 USMAN MARIE MD 461.9 SINUSITIS ACUTE 10/05/2012 YOLA CASTILLO APRN 461.9 SINUSITIS ACUTE 10/05/2012 USMAN MARIE MD 461.9 SINUSITIS ACUTE 10/05/2012 USMAN MARIE MD 461.9 SINUSITIS ACUTE 10/05/2012 461.9 SINUSITIS ACUTE 10/05/2012 USMAN MARIE MD 461.9 SINUSITIS ACUTE 10/05/2012 461.9 SINUSITIS ACUTE 10/05/2012 461.9 SINUSITIS ACUTE 10/05/2012 461.9 SINUSITIS ACUTE 10/05/2012 461.9 SINUSITIS ACUTE 10/05/2012 461.9 SINUSITIS ACUTE 10/05/2012 461.9 SINUSITIS ACUTE 10/05/2012 461.9 SINUSITIS ACUTE 10/05/2012 461.9 SINUSITIS ACUTE 10/05/2012 FARRELL DO, JESSICA K 461.9 SINUSITIS ACUTE 10/05/2012 FARRELL DO, JESSICA K 461.9 SINUSITIS ACUTE 10/05/2012 ELIAZAR MCKEON APRN 461.9 SINUSITIS ACUTE 10/05/2012 FARRELL DO, JESSICA K 461.9 SINUSITIS ACUTE 10/05/2012 FARRELL DO, JESSICA K 461.9 SINUSITIS ACUTE 10/05/2012 FARRELL DO, JESSICA K 461.9 SINUSITIS ACUTE 10/05/2012 ELIAZAR MCKEON APRN 461.9 SINUSITIS ACUTE 11/10/2012 YOLA CASTILLO APRN 599.0 URINARY TRACT INFECTION 11/10/2012 USMAN MARIE MD 599.0 URINARY TRACT INFECTION 11/10/2012 USMAN MARIE MD 599.0 URINARY TRACT INFECTION 11/10/2012 599.0 URINARY TRACT INFECTION 11/10/2012 USMAN MARIE MD 599.0 URINARY TRACT INFECTION 11/10/2012 599.0 URINARY TRACT INFECTION 11/10/2012 599.0 URINARY TRACT INFECTION 11/10/2012 599.0 URINARY TRACT INFECTION 11/10/2012 599.0 URINARY TRACT INFECTION 11/10/2012 599.0 URINARY TRACT INFECTION 11/10/2012 599.0 URINARY TRACT INFECTION 11/10/2012 599.0 URINARY TRACT INFECTION 11/10/2012 599.0 URINARY TRACT INFECTION 11/10/2012 FARRELL DO, JESSICA K 599.0 URINARY TRACT INFECTION 11/10/2012 FARRELL DO, JESSICA K 599.0 URINARY TRACT INFECTION 11/10/2012 ELIAZAR MCKEON APRN 599.0 URINARY TRACT INFECTION 11/10/2012 FARRELL DO, JESSICA K 599.0 URINARY TRACT INFECTION 11/10/2012 FARRELL DO, JESSICA K 599.0 URINARY TRACT INFECTION 11/10/2012 FARRELL DO, JESSICA K 599.0 URINARY TRACT INFECTION 11/10/2012 ELIAZAR MCKEON APRN 599.0 URINARY TRACT INFECTION 02/05/2013 Ot 644.03 THRT BEKAH LABOR-ANTEPART 02/17/2013 JESSICA FARRELL DO Ot 659.73 ABN FET HT RT/RHYTHM,ANTEPARTUM COND OR 02/18/2013 USMAN MARIE MD Ot 599.0 URIN TRACT INFECTION NOS 02/18/2013 USMAN MARIE MD Ot 646.63 INFECTION-ANTEPARTUM 02/18/2013 USMAN MARIE MD Ot 655.73 DECR MOVEMNT ANTEPARTUM CONDITION 03/01/2013 USMAN MARIE MD Ot 285.9 ANEMIA NOS 03/01/2013 USMAN MARIE MD Ot 648.22 ANEMIA-DELIVERED W P/P 03/01/2013 USMAN MARIE MD Ot V27.0 DELIVER-SINGLE LIVEBORN 06/04/2013 919.4 INSECT BITE NONVENOMOUS OF OTHER MULTIPLE AND UNSPECIFIED SITES WITHOUT INFECTION 06/04/2013 JESSICA FARRELL DO 919.4 INSECT BITE NONVENOMOUS OF OTHER MULTIPLE AND UNSPECIFIED SITES WITHOUT INFECTION 06/04/2013 JESSICA FARRELL DO 919.4 INSECT BITE NONVENOMOUS OF OTHER MULTIPLE AND UNSPECIFIED SITES WITHOUT INFECTION 06/04/2013 ELIAZAR MCKEON APRN 919.4 INSECT BITE NONVENOMOUS OF OTHER MULTIPLE AND UNSPECIFIED SITES WITHOUT INFECTION 06/04/2013 JESSICA FARRELL DO 919.4 INSECT BITE NONVENOMOUS OF OTHER MULTIPLE AND UNSPECIFIED SITES WITHOUT INFECTION 06/04/2013 JESSICA FARRELL DO 919.4 INSECT BITE NONVENOMOUS OF OTHER MULTIPLE AND UNSPECIFIED SITES WITHOUT INFECTION 06/04/2013 JESSICA FARRELL DO 919.4 INSECT BITE NONVENOMOUS OF OTHER MULTIPLE AND UNSPECIFIED SITES WITHOUT INFECTION 06/04/2013 ELIAZAR MCKEON APRN 919.4 INSECT BITE NONVENOMOUS OF OTHER MULTIPLE AND UNSPECIFIED SITES WITHOUT INFECTION 07/18/2013 JESSICA FARRELL DO 311 DEPRESSIVE DISORDER NOT ELSEWHERE CLASSIFIED 07/18/2013 JESSICA FARRELL DO 311 DEPRESSIVE DISORDER NOT ELSEWHERE CLASSIFIED 07/18/2013 ELIAZAR MCKEON APRN 311 DEPRESSIVE DISORDER NOT ELSEWHERE CLASSIFIED 07/18/2013 JESSICA FARRELL DO 311 DEPRESSIVE DISORDER NOT ELSEWHERE CLASSIFIED 07/18/2013 JESSICA FARRELL DO 311 DEPRESSIVE DISORDER NOT ELSEWHERE CLASSIFIED 07/18/2013 FARRELL JESSICA BRAVO 311 DEPRESSIVE DISORDER NOT ELSEWHERE CLASSIFIED 07/18/2013 ELIAZAR MCKEON APRN 311 DEPRESSIVE DISORDER NOT ELSEWHERE CLASSIFIED 04/20/2014 YOVANI CARIAS MD Ot 664.81 OB PERINEAL TRAU NEC-DEL 04/20/2014 YOVANI CARIAS MD Ot V06.1 [id number], COMBINED [ 04/20/2014 YOVANI CARIAS MD Ot V27.0 DELIVER-SINGLE LIVEBORN 06/23/2014 JESSICA FARRELL DO 780.99 OTHER GENERAL SYMPTOMS 06/23/2014 JESSICA FARRELL DO 780.99 OTHER GENERAL SYMPTOMS 06/23/2014 JESSICA FARRELL DO 780.99 OTHER GENERAL SYMPTOMS 06/23/2014 ELIAZAR MCKEON APRN 780.99 OTHER GENERAL SYMPTOMS 09/02/2014 JESSICA FARRELL DO 626.4 IRREGULAR MENSTRUAL CYCLE 09/02/2014 ELIAZAR MCKEON APRN 626.4 IRREGULAR MENSTRUAL CYCLE 09/26/2016 Ot 649.63 UTERINE SIZE DATE DISCREPANCY, ANTEPARTU 09/26/2016 Ot V28.89 OTHER SPECIFIED SCREENING 09/26/2016 Ot V28.81 ENCOUNTER FOR ANATOMIC SURVEY 09/26/2016 ELIAZAR MCKEON APRN Ot 649.63 UTERINE SIZE DATE DISCREPANCY, ANTEPARTU 09/26/2016 ELIAZAR MCKEON APRN Ot 659.73 ABN FET HT RT/RHYTHM,ANTEPARTUM COND OR 09/26/2016 CYNTHIA MILLER, USMAN Hodge Ot 655.73 DECR MOVEMNT ANTEPARTUM CONDITION 09/26/2016 YOVANI CARIAS MD Ot 649.63 UTERINE SIZE DATE DISCREPANCY, ANTEPARTU 09/26/2016 YOVANI CARIAS MD Ot V28.81 ENCOUNTER FOR ANATOMIC SURVEY 09/26/2016 YOVANI CARIAS MD Ot V28.81 ENCOUNTER FOR ANATOMIC SURVEY 10/01/2016 YOVANI CARIAS MD Ot Z34.91 ENCNTR FOR SUPRVSN OF NORMAL PREG, UNSP, 10/09/2016 YOVANI CARIAS MD Ot Z34.91 ENCNTR FOR SUPRVSN OF NORMAL PREG, UNSP, 11/21/2016 YOVANI CARIAS MD, Ot Z36 ENCOUNTER FOR SCREENING OF MOT 12/02/2016 YOVANI CARIAS MD, Ot36 ENCOUNTER FOR SCREENING OF MOT 12/29/2016 YOVANI CARIAS MD, Ot36 ENCOUNTER FOR SCREENING OF MOT 12/29/2016 YOVANI CARIAS MD, Ot Z3A.24 24 WEEKS GESTATION OF 01/01/2017 YOVANI CARIAS MD, Ot O99.89 OTH DISEASES AND CONDITIONS COMPL PREG/C 01/01/2017 YOVANI CARIAS MD, Ot R10.9 UNSPECIFIED ABDOMINAL PAIN 01/01/2017 YOVANI CARIAS MD, Ot3A.27 27 WEEKS GESTATION OF 01/06/2017 YOVANI CARIAS MD, Ot36 ENCOUNTER FOR SCREENING OF MOT 01/06/2017 YOVANI CARIAS MD, Ot3A.24 24 WEEKS GESTATION OF 01/08/2017 YOVANI CARIAS MD, Ot O99.89 OTH DISEASES AND CONDITIONS COMPL PREG/C 01/08/2017 YOVANI CARIAS MD, Ot R10.9 UNSPECIFIED ABDOMINAL PAIN 01/08/2017 YOVANI CARIAS MD, Ot Z3A.27 27 WEEKS GESTATION OF 03/01/2017 GRACE CARLSON MD Ot O60.03 LABOR WITHOUT DELIVERY, THIRD TR 03/01/2017 GRACE CARLSON MD Ot O99.89 OTH DISEASES AND CONDITIONS COMPL PREG/C 03/01/2017 GRACE CARLSON MD Ot R10.9 UNSPECIFIED ABDOMINAL PAIN 03/01/2017 GRACE CARLSON MD Ot Z3A.34 34 WEEKS GESTATION OF 03/08/2017 GRACE CARLSON MD Ot O60.03 LABOR WITHOUT DELIVERY, THIRD TR 03/08/2017 GRACE CARLSON MD Ot O99.89 OTH DISEASES AND CONDITIONS COMPL PREG/C 03/08/2017 GRACE CARLSON MD Ot R10.9 UNSPECIFIED ABDOMINAL PAIN 03/08/2017 GRACE CARLSON MD Ot Z3A.34 34 WEEKS GESTATION OF Procedures Code Description [place] [address] URINE TEST (IN-HOUSE) 07/20/2012 00882 UA OB DIP 2011 88766 TRICHOMONAS (IN-HOUSE) 09/06/2012 45103 TSH 09/06/2012 79642 CBC 09/06/2012 04625 SYPHILLIS-[facility] 09/06/2012 51910 [facility] 07266 RUBELLA ANTIBODY, IGG 09/06/2012 56918 ANTIBODY SCREEN (order) 09/06/2012 93062 BLOOD TYPE/Rh FACTOR 09/06/2012 15283 CULTURE UROGENITAL 09/06/2012 54616 HEP B SURFACE ANTIGEN (STATE) 09/06/2012 74551 GC/CHLAM PROBE (STATE) 09/06/2012 77341 STREP A (IN-HOUSE) 10/05/2012 18014 ROUTINE VENIPUNCTURE 10/06/2012 94515 US OB ULTRASOUND 10/06/2012 TETRA TETRA SCREEN 46189 THERAPUTIC INJ SQ/IM 11/10/2012 J0696 ROCEPHIN INJ 27621 UA LONG DIP 11/10 65414 CULTURE URINE 37105 HEMOGLOBIN (IN-HOUSE) 11/19/2012 37404 UA OB DIP 2012 16537 OB US >/=14 WKS SNGL FETUS 11/19/2012 64939 ROUTINE VENIPUNCTURE 11/29/2012 88423 ROUTINE VENIPUNCTURE 11/29/2012 52681 ROUTINE VENIPUNCTURE 11/29/2012 97594 CBC 11/30/2012 53783 CBC 11/30/2012 77980 CBC 11/30/2012 23237 GLUCOSE RANDY 1 HOUR 11/30/2012 66843 GLUCOSE RANDY 1 HOUR 11/30/2012 45666 GLUCOSE RANDY 1 HOUR 11/30/2012 83224 UA LONG DIP 12/17 93560 UA LONG DIP 01/12 80299 UA LONG DIP 01/26 78394 CULTURE GROUP B STREP VAG 02/08/2013 12104 UA OB DIP 2012 73.59 MANUAL ASSIST DELIV NEC 02/27/2013 55163 STREP A (IN-HOUSE) 03/24/2013 11123 CULTURE THROAT 75098 MONO TEST (IN-HOUSE) 03/24/2013 41954 URINE TEST (IN-HOUSE) 08/03/2013 43189 URINE TEST (IN-HOUSE) 08/22/2013 75.69 REPAIR OB LACERATION NEC 04/19/2014 16787 THERAPUTIC INJ SQ/IM 06/23/2014 J1050 DEPO PROVERA 02/2014 47648 TEST, URINE (IN-HOUSE) 06/23/2014 02242 TEST, URINE (IN-HOUSE) 09/11/2014 41398 THERAPUTIC INJ SQ/IM 09/11/2014 J1050 DEPO PROVERA Results Test Result Range Complete urinalysis with reflex to culture - 02/28/17 23:59 Urine color determination YELLOW NRG Urine clarity determination CLEAR NRG Urine pH measurement by test strip 6 5- 9 Specific gravity of urine by test strip 1.025 1.016-1.022 Urine protein assay by test strip, semi-quantitative 1+ NEGATIVE Urine glucose detection by automated test strip NEGATIVE NEGATIVE Erythrocytes detection in urine sediment by light microscopy 1+ NEGATIVE Urine ketones detection by automated test strip NEGATIVE NEGATIVE Urine nitrite detection by test strip NEGATIVE NEGATIVE Urine total bilirubin detection by test strip NEGATIVE NEGATIVE Urine urobilinogen measurement by automated test strip (mass/volume) 1 mg/dL NORMAL Urine leukocyte esterase detection by dipstick 1+ NEGATIVE Automated urine sediment erythrocyte count by microscopy (number/high power field) RARE NRG Automated urine sediment leukocyte count by microscopy (number/high power field ) [HPF] NRG Bacteria detection in urine sediment by light microscopy TRACE NRG Squamous epithelial cells detection in urine sediment by light microscopy 5-10 NRG Crystals detection in urine sediment by light microscopy NONE NRG Casts detection in urine sediment by light microscopy NONE NRG Mucus detection in urine sediment by light microscopy MODERATE NRG Complete urinalysis with reflex to culture NO NRG Yeast detection in urine sediment by light microscopy FEW NRG Complete blood count (CBC) with automated white blood cell (WBC) differential - 04/05/17 20:45 Blood leukocytes automated count (number/volume) 19.1 10*3/ uL 4.3-11.0 Blood erythrocytes automated count (number/volume) 4.03 10*6 /uL 4.35-5.85 Venous blood hemoglobin measurement (mass/volume) 10.4 g/dL 11.5-16.0 Blood hematocrit (volume fraction) 32 % 35-52 Automated erythrocyte mean corpuscular volume 79 [foz_us] 80-99 Automated erythrocyte mean corpuscular hemoglobin (mass per erythrocyte) 26 pg 25-34 Automated erythrocyte mean corpuscular hemoglobin concentration measurement ( mass/volume) 33 g/dL 32-36 Automated erythrocyte distribution width ratio 14.8 % 10.0-14.5 Automated blood platelet count (count/volume) 357 10*3/uL 130-400 Automated blood platelet mean volume measurement 10.9 [fo_ us] 7.4-10.4 Automated blood neutrophils/100 leukocytes 74 % 42-75 Automated blood lymphocytes/100 leukocytes 14 % 12-44 Blood monocytes/100 leukocytes 10 % 0-12 Automated blood eosinophils/100 leukocytes 1 % 0-10 Automated blood basophils/100 leukocytes 0 % 0-10 Blood neutrophils automated count (number/volume) 14.1 10*3 1.8-7.8 Blood lymphocytes automated count (number/volume) 2.7 10*3 1.0-4.0 Blood monocytes automated count (number/volume) 2.0 10*3 0.0-1.0 Automated eosinophil count 0.2 10*3/uL 0.0-0.3 Automated blood basophil count (count/volume) 0.1 10*3/uL 0.0-0.1 Blood type T Indirect antibody screen panel - 04/05/17 20:45 ABO+Rh group OP NRG Transfusion band number [id number] Blood group antibody screen NEGATIVE [facility] Complete blood count (CBC) with automated white blood cell (WBC) differential - 04/07/17 06:58 Blood leukocytes automated count (number/volume) 19.1 10*3/ uL 4.3-11.0 Blood erythrocytes automated count (number/volume) 3.69 10*6 /uL 4.35-5.85 Venous blood hemoglobin measurement (mass/volume) 9.5 g/dL 11.5-16.0 Blood hematocrit (volume fraction) 30 % 35-52 Automated erythrocyte mean corpuscular volume 81 [fo_us] 80-99 Automated erythrocyte mean corpuscular hemoglobin (mass per erythrocyte) 26 pg 25-34 Automated erythrocyte mean corpuscular hemoglobin concentration measurement ( mass/volume) 32 g/dL 32-36 Automated erythrocyte distribution width ratio 15.0 % 10.0-14.5 Automated blood platelet count (count/volume) 307 10*3/uL 130-400 Automated blood platelet mean volume measurement 11.3 [foz_ us] 7.4-10.4 Automated blood neutrophils/100 leukocytes 71 % 42-75 Automated blood lymphocytes/100 leukocytes 18 % 12-44 Blood monocytes/100 leukocytes 9 % 0-12 Automated blood eosinophils/100 leukocytes 2 % 0-10 Automated blood basophils/100 leukocytes 0 % 0-10 Blood neutrophils automated count (number/volume) 13.5 10*3 1.8-7.8 Blood lymphocytes automated count (number/volume) 3.4 10*3 1.0-4.0 Blood monocytes automated count (number/volume) 1.7 10*3 0.0-1.0 Automated eosinophil count 0.4 10*3/uL 0.0-0.3 Automated blood basophil count (count/volume) 0.1 10*3/uL 0.0-0.1 Encounters ACCT No. Visit Date/Time Discharge Status Pt. Type Provider Facility Loc./Unit Complaint [id number] 03/25/2017 12:45:00 2016 14:20:00 DIS Outpatient YOVANI CARIAS MD Via [facility] [id number] 02/28/2017 22:54:00 2016 00:51:00 DIS Outpatient GRACE CARLSON MD [facility] CRAMPING [id number] 01/01/2017 23:00:00 2016 23:50:00 DIS Outpatient YOVANI CARIAS MD [facility] ABD PAIN;VAGINAL PAIN [id number] 04/19/2014 04:40:00 2013 16:30:00 DIS Inpatient YOVANI CARIAS MD [facility] LDRP SROM;LABOR [id number] 01/16/2014 11:32:00 2013 23:59:59 CLS Outpatient YOVANI CARIAS MD [facility] RAD FOLLOW UP [id number] 12/14/2013 13:26:00 2013 23:59:59 CLS Outpatient YOVANI CARIAS MD [facility] RAD SURVEY [id number] 09/29/2013 14:46:00 2012 23:59:59 CLS Outpatient YOVANI CARIAS MD [facility] RAD FUNDAL HEIGHT DISCREPENCY [id number] 02/27/2013 12:52:00 2012 15:55:00 DIS Inpatient USMAN MARIE MD [facility] WS LABOR [id number] 02/21/2013 13:35:00 2012 23:59:59 CLS Outpatient USMAN MARIE MD [facility] RAD DECREASED MOVEMENT [id number] 02/18/2013 01:49:00 2012 06:10:00 DIS Outpatient USMAN MARIE MD [facility] WSo DECREASED MOVEMENT [id number] 02/16/2013 15:10:00 2012 09:16:00 DIS Inpatient BUD BRAVO JESSICA K [facility] WS DECREASED MOVEMENT [id number] 02/16/2013 11:01:00 2012 23:59:59 CLS Outpatient ELIAZAR MCKEON APRN [facility] RAD PRESENTATION,SIZE GREATER THAN DATES [id number] 04/05/2017 19:43:00 ACT Inpatient YOVANI CARIAS MD [facility] LDRP INDUCTION [id number] 12/26/2016 14:05:00 ACT Outpatient YOVANI CARIAS MD [facility] RAD SURVEY FOLLOW UP [id number] 11/20/2016 14:41:00 ACT Outpatient YOVANI CARIAS MD [facility] RAD SURVEY [id number] 09/26/2016 09:50:00 ACT Outpatient YOVANI CARIAS MD [facility] RAD DATING [id number] 02/04/2013 22:39:00 Document Registration [id number] 11/24/2012 15:05:00 Document Registration [id number] 10/22/2012 13:47:00 Document Registration [id number] 08/10/2012 10:14:00 Document Registration
--- OUTSIDE RECORDS SUMMARY | 2017-04-08 17:40 | XMS REPORT ---
Author Author ELIAZAR MCKEON [facility] e[employer] Address Unknown Phone Unavailable Care Team Providers Care Passport Application Examiner Name Role Phone ELIAZAR MCKEON CP Unavailable Allergies No Known Allergies Problems Problem Type Condition ICD-9 Code Onset Dates Condition Status Problem Need for prophylactic vaccination and inoculation, Influenza V04.81 Active Problem Other, multiple, and unspecified sites, insect bite, nonvenomous, without mention of infection 919.4 Active Problem Supervision of normal first V22.0 Active Problem Other general symptoms 780.99 Active Problem Dysmenorrhea 625.3 Active Problem examination or test, positive result V72.42 Active Problem Unspecified backache 724.5 Active Problem Irregular menstrual cycle 626.4 Active Problem Unspecified constipation 564.00 Active Problem Acute pharyngitis 462 Active Problem Depressive disorder, not elsewhere classified 311 Active Problem Allergic rhinitis due to pollen 477.0 Active Problem Urinary tract infection, site not specified 599.0 Active Assessment Encounter for contraceptive management V25.9 Active Problem Acute sinusitis, unspecified 461.9 Active Medications No Known Medications Procedures Procedure Coding System Code Date DEPO PROVERA (150 MG/ML) CPT-4 J1050 Jun 19, 2015 THER/PROPH/DIAG INJ, SC/IM CPT-4 59355 Jun 19, 2015 URINE TEST CPT-4 12670 Jun 19, 2015 Results Name Result Date Reference Range Unit Abnormality Flag TEST, URINE (IN HOUSE) Summary Purpose eClinicalWorks Submission
--- OUTSIDE RECORDS SUMMARY | 2017-04-08 17:40 | XMS REPORT | Continuity of Care Document ---
Author Author [facility] Organization [facility] Address Unknown Phone Unavailable Care Team Providers Care Legal Document Specialist Name Role Phone USMAN MARIE MD PP Insurance Providers Payer Name Policy Number Subscriber Name Relationship [facility] [id number] Cadence Preston 01 Self / Same As Patient Advance Directives Directive Response Recorded Date Advance Directives N 02/27/13 2:11pm Health Care Power of Instructional Assistant N 02/27/13 2:11pm Organ Donor N 02/27/13 2:11pm Problems No Known Problems or Medical conditions. Family History History Response Recorded Date/Time Hx Family Cancer N 02/27/13 2:16pm Social History History Response Recorded Date/Time Alcohol Use Denies Use 02/27/13 2:12pm Recreational Drug Use N 02/27/13 2:12pm Recent Infectious Disease Exposure N 09/30 2:12pm Hospitalization with Isolation Denies 5:59pm Allergies, Adverse Reactions, Alerts Allergen Type Severity Reaction Last Updated No Known Drug Allergies 02/18/13 Medications Medication Dose Units Route Sig Qty Days Ferrous Sulfate 325 Mg PO DAILY Vit/Fe Fumarate/Fa ( Vitamin Tablet) 1 Each PO DAILY Iron,Carbonyl (Iron) 45 Mg PO BID Immunizations Name Given Type Date of Influenza Vaccine 08/04/12 H Response Recorded Date/Time Status not known Unknown Results Test Date Result Interp. Ref. Range Basophils # (Auto) February 28, 2013 5:32am 0.0 10^3/uL N 0.0-0.1 Basophils (%) (Auto) February 28, 2013 5:32am 0 % N 0-10 Eosinophils # (Auto) February 28, 2013 5:32am 0.3 10^3/uL N 0.0-0.3 Eosinophils (%) (Auto) February 28, 2013 5:32am 2 % N 0-10 Hematocrit February 28, 2013 5:32am 31 % L 35-52 Hemoglobin February 28, 2013 5:32am 10.6 G/ DL L 11.5-16.0 Lymphocytes # (Auto) February 28, 2013 5:32am 2.7 X 10^3 N 1.0-4.0 Lymphocytes (%) (Auto) February 28, 2013 5:32am 16 % N 12-44 Mean Corpuscular Hemoglobin February 28, 2013 5:32am 30 PG N 25-34 Mean Corpuscular Hemoglobin Concent February 28, 2013 5:32am 35 G/DL N 32-36 Mean Corpuscular Volume February 28, 2013 5:32am 87 FL N 80-99 Mean Platelet Volume February 28, 2013 5:32am 11.1 FL H 7.4-10.4 Monocytes # (Auto) February 28, 2013 5:32am 1.7 X 10^3 H 0.0-1.0 Monocytes (%) (Auto) February 28, 2013 5:32am 10 % N 0-12 Neutrophils # (Auto) February 28, 2013 5:32am 12.2 X 10^3 H 1.8-7.8 Neutrophils (%) (Auto) February 28, 2013 5:32am 73 % N 42-75 Platelet Count February 28, 2013 5:32am 252 10^3/uL N 130-400 Red Blood Count February 28, 2013 5:32am 3.54 10^6/uL L 4.35-5.85 Red Cell Distribution Width February 28, 2013 5:32am 13.5 % N 10.0-14.5 Urine Bacteria February 18, 2013 3:00am MODERATE /HPF H - Urine Bilirubin February 18, 2013 3:00am NEGATIVE - Urine Casts February 18, 2013 3:00am NONE / LPF - Urine Clarity February 18, 2013 3:00am CLEAR - Urine Color February 18, 2013 3:00am YELLOW - Urine Crystals February 18, 2013 3:00am NONE /LPF - Urine Culture Indicated February 18, 2013 3:00am YES - Urine Glucose (UA) February 18, 2013 3:00am NEGATIVE - Urine Ketones February 18, 2013 3:00am NEGATIVE - Urine Leukocyte Esterase February 18, 2013 3:00am 1+ H - Urine Mucus February 18, 2013 3:00am NEGATIVE /LPF - Urine Nitrite February 18, 2013 3:00am NEGATIVE - Urine Protein February 18, 2013 3:00am NEGATIVE - Urine RBC February 18, 2013 3:00am NONE /HPF - Urine Specific [place] February 18, 2013 3:00am 1.010 L - Urine Squamous Epithelial Cells February 18, 2013 3:00am 10-25 /HPF H - Urine Urobilinogen February 18, 2013 3:00am NORMAL MG/DL - Urine WBC February 18, 2013 3:00am 5-10 /HPF H - Urine pH February 18, 2013 3:00am 6.5 - White Blood Count February 28, 2013 5:32am 16.9 10^3/uL H 4.3-11.0 Urine RBC (Auto) February 18, 2013 3:00am NEGATIVE - Procedures Procedure Code Date MANUAL ASSIST NEAL NEC 73.59 02/27/13 Urine Culture 02/18/13 Encounters Encounter Location Date/Time Discharged Inpatient [facility] 12:52pm
--- OUTSIDE RECORDS SUMMARY | 2017-04-08 17:40 | XMS REPORT | Continuity of Care Document ---
Author Author [facility] Organization [facility] Address Unknown Phone Unavailable Care Team Providers Care Deputy Chief Counsel Name Role Phone USMAN MARIE MD PP Insurance Providers Payer Name Policy Number Subscriber Name Relationship [facility] [id number] Cadence Preston 01 Self / Same As Patient Advance Directives Directive Response Recorded Date Advance Directives N 02/27/13 2:11pm Health Care Power of Vending Route Driver N 02/27/13 2:11pm Organ Donor N 02/27/13 [...] 2013 3:00am NONE /HPF - Urine Specific [place] February 18, 2013 3:00am 1.010 L - [...]
--- OUTSIDE RECORDS SUMMARY | 2017-04-08 17:40 | XMS REPORT | Continuity of Care Document ---
Author Author [facility] Organization [facility] Address Unknown Phone Unavailable Care Team Providers Care Body Builder Name Role Phone USMAN MARIE MD PP Insurance Providers Payer Name Policy Number Subscriber Name [facility] [id number] Cadence Preston 01 Self / Same As Patient Advance Directives Directive Response Recorded Date Advance Directives N 02/27/13 2:11pm Health Care Power of Personal Driver N 02/27/13 2:11pm Organ Donor N [...] 2013 3:00am NONE /HPF - Urine Specific [place] February 18, 2013 3:00am 1.010 L - [...]
--- OUTSIDE RECORDS SUMMARY | 2017-04-08 17:40 | XMS REPORT ---
Author Author CURLY VERDUZCO Organization [employer] Address Unknown Phone Unavailable Care Team Providers Care Graduate Fellow Name Role Phone CURLY VERDUZCO CP Unavailable Allergies, Adverse Reactions, Alerts Substance Reaction Event Type N.K.D.A. Info Not Available Non Drug Allergy Problems Problem Type Condition Code Onset Dates Condition Status Assessment Numbness and tingling in left arm R20.0 Active Assessment Headache R51 Active Medications Medication Code System Code Instructions Start Date End Date Status Dosage Cyclobenzaprine HCl [facility] [address]-29 10 MG Orally 2 times a day Aug 08, 2015 Aug 15, 2015 1 tablet Depo-Provera [facility] [address]-05 150 mg/mL Jul 17, 2014 inject 150 mg by intramuscular route every 3 months PredniSONE [facility] [address]-36 20 MG Orally Twice a day Aug 08, 2015Jul 1 tablet with food or milk Procedures Procedure Coding System Code Date Office Visit, Est Pt., Level 3 CPT-4 74262 Aug 08, 2015 Vital Signs Date/Time: Aug 08, 2015 Temperature 99.1 F Weight 252 lbs Height 63 in BMI 44.63 Index Blood Pressure Diastolic 82 mmHg Blood Pressure Systolic 122 mmHg Cardiac Monitoring Heart Rate 94 bpm Results No Known Results Summary Purpose eClinicalWorks Submission
--- OUTSIDE RECORDS SUMMARY | 2017-04-08 17:41 | XMS REPORT | Continuity of Care Document ---
Author Author [facility] Organization [facility] Address Unknown Phone Unavailable Care Team Providers Care Animal Stunner Name Role Phone USMAN MARIE MD PP Insurance Providers Payer Name Policy Number Subscriber Name [facility] [id number] Cadence Preston 01 Self / Same As Patient Advance Directives Directive Response Recorded Date Advance Directives N 02/27/13 2:11pm Health Care Power of Inspector [employer] Wafer N 02/27/13 2:11pm Organ Donor N 02/27/13 [...] 2013 3:00am NONE /HPF - Urine Specific [place] February 18, 2013 3:00am 1.010 L - [...]
--- OUTSIDE RECORDS SUMMARY | 2017-04-08 17:41 | XMS REPORT ---
Author ELIAZAR Fan [facility] eClinicalWorks Address Unknown Phone Unavailable Care Team Providers Care Paper Products Printer Name Role Phone ELIAZAR MCKEON CP Unavailable Allergies, Adverse Reactions, Alerts Substance Reaction Event Type N.K.D.A. Info Not Available Non Drug Allergy Problems Problem Type Condition Code Onset Dates Condition Status Assessment Unwanted fertility Z30.09 Active Medications Medication Code System Code Instructions Start Date End Date Status Dosage Depo-Provera [facility] [address]-11 150 mg/mL Jul 17, 2014 inject 150 mg by intramuscular route every 3 months Procedures Procedure Coding System Code Date Office Visit, Est Pt., Level 3 CPT-4 32395 Jul 24, 2015 Vital Signs Date/Time: Jul 24, 2015 Temperature 98.1 F Weight 251 lbs Height 63 in BMI 44.46 Index Blood Pressure Diastolic 78 mmHg Blood Pressure Systolic 120 mmHg Cardiac Monitoring Heart Rate 85 bpm Results No Known Results Summary Purpose eClinicalWorks Submission
== END 2017-04-07 15:15 | disposition home or self-care (01) | DRG 775 ==
LOC: LDRP 19:43 → ENPENDDIS 04-07 08:00 → EDPENDDISTM 04-07 15:00
PROVIDERS: ADMIT Family Medicine; ATTEND Family Medicine
PROC: 10E0XZZ Delivery of Products of Conception, External Approach (ICD-10-PCS; principal; 2017-04-06)
PROC: 0HQ9XZZ Repair Perineum Skin, External Approach (ICD-10-PCS; 2017-04-06)
DX: O26.893 Other specified pregnancy related conditions, third trimester (principal); O99.820 Streptococcus B carrier state complicating pregnancy; O70.0 First degree perineal laceration during delivery; O76 Abnormality in fetal heart rate and rhythm complicating labor and delivery; Z3A.39 39 weeks gestation of pregnancy; Z37.0 Single live birth; Z23 Encounter for immunization
CPT/HCPCS: 36415; 85025; 86850; 86900; 86901; 90715

== ENCOUNTER 2023-06-06 22:16 | Emergency (ER) | payer SELFPAY ==
[~2023-06-06] VITALS: Ht 162.6 cm; Wt 77.0 kg
[~2023-06-06 22:16] MED LIST changes: +IBUP-1773 PO
[2023-06-06 22:28] VITALS: BP 109/74
--- NOTE | 2023-06-06 23:18 | ED EENT ---
History of Present Illness General Chief Complaint: Oral/Throat Problems Stated Complaint: DENTAL ABSCESS/FACIAL SWELLING Nursing Triage Note: pt ambulatory to room with so. pt states she went to the clinic 3 days ago and they "popped" her upper right tooth abscess. pt states she has taken amoxicillin since then. states she woke up today and her face was swollen on the right cheek. pt states she has been taking tylenol and ibuprofen but has not been helping very much. pt is A&Ox4, speech normal on arrival Source: patient Exam Limitations: no limitations History of Present Illness Date Seen by Provider: Jun 06, 2023 Time Seen by Provider: 23:13 Allergies and Home Medications Allergies Coded Allergies: No Known Drug Allergies (Unverified , 02/18/13) Patient Home Medication List Ibuprofen (Ibuprofen) 600 Mg Tablet, 600 MG PO Q6H Prescribed by: YOVANI CARIAS on 04/07/17 0800 Vit/Iron Fumarate/FA ( Vitamin Tablet) 1 Each Tablet, 1 EACH PO DAILY, (Reported) Entered as Reported by: IDA JARAMILLO on 01/01/17 2337 Past [id number]-[id number]-Gxchqs Hx Immunizations Up To Date Tetanus Booster (TDap): Less than 5yrs Seasonal Allergies Seasonal Allergies: No Past Medical History Surgeries: Yes (wisdom teeth) Respiratory: No Cardiac: No Neurological: No Reproductive Disorders: No Sexually Transmitted Disease: No HIV/AIDS: No Genitourinary: No Gastrointestinal: No Musculoskeletal: Yes (occasional problems with pinched nerve) Endocrine: No HEENT: No Tonsilitis Cancer: No Psychosocial: No Integumentary: No Blood Disorders: No Adverse Reaction/Blood Tranf: No Family Medical History Abdominal aortic aneurysm Winn's disease Alcoholism Aphasia Cancer Cancer of colon Cataract Chest pain Congenital heart disease Congestive heart failure Cystic fibrosis Dementia Dysphagia Family history: Allergy Family history: Alzheimer's disease Family history: Arthritis Family history: Breast disease Family history: Cardiovascular disease Family history: Coronary thrombosis Family history: Diabetes mellitus Family history: Gastrointestinal disease Family history: Glaucoma Family history: Hypertension Family history: Osteoporosis Family history: Thyroid disorder Headache Hearing loss Heart disease Hereditary disease History of - anemia History of - disorder History of - respiratory disease History of drug abuse Human immunodeficiency virus (HIV) seropositivity Hypercholesterolemia Infertile Kidney disease Malignant neoplasm of lung Myocardial infarction Parkinson's disease Prostate cancer Psychotic disorder Seizure disorder Stroke Tuberculosis Visual impairment No Family History of: Family history: Asthma Physical Exam Vital Signs Vital Signs - First Documented 06/06/23 22:28 Temp 36.4 Pulse 96 Resp 18 B/P (MAP) 109/74 (86) Pulse Ox 99 Height, Weight, BMI Height: 5'4.00" Weight: 271lbs. 8.0oz. 123.244465vo; 29.00 BMI Method: Progress/Results/Core Measures Results/Orders My Orders Orders - MORGAN ESPINOZA MD Clindamycin Capsule (Clindamycin Capsule (06/06/23 23:30) Medications Given in ED Current Medications Medications Dose Ordered Sig/Yovani Route Start Time Stop Time Status Last Admin Dose Admin Clindamycin HCl 450 mg ONCE ONCE PO 06/06/23 23:30 06/06/23 23:31 DC 06/06/23 23:29 450 MG Vital Signs/I&O 06/06/23 22:28 Temp 36.4 Pulse 96 Resp 18 B/P (MAP) 109/74 (86) Pulse Ox 99 Blood Pressure Mean: 86 Departure Impression Primary Impression: Periodontal disease Additional Impression: Dental decay Disposition: 01 HOME, SELF-CARE Condition: Stable Departure-Patient Inst. Decision time for Depature: 23:47 Referrals: NO,LOCAL PHYSICIAN (PCP/Family) Primary Care Physician Patient Instructions: Dental Pain ED, Periodontal Disease Add. Discharge Instructions: Continue taking amoxicillin until you are able to start the clindamycin. Seek follow-up with a dentist as soon as possible. [place] your teeth twice daily with a soft bristle toothbrush. You may take ibuprofen up to 600 mg every 6 hours and/or Tylenol (acetaminophen) up to 1000 mg every 6 hours as needed for pain. Return to the emergency room if you have worsening symptoms including fever, escalating pain, etc. All discharge instructions reviewed with patient and/or family. Voiced understanding. Scripts Clindamycin HCl (Clindamycin HCl) 300 Mg Capsule 300 MG PO QID, #40 CAP Prov: MORGAN ESPINOZA MD 06/06/23 MORGAN ESPINOZA MD Jun 06, 2023 23:18
[2023-06-06] MEDS ORDERED: CLINDAMYCIN 150 MG CAPSULE PO ONE (23:30)
[2023-06-06] MEDS ORDERED: CLIN-144 PO (23:49)
== END 2023-06-06 23:58 | disposition home or self-care (01) ==
LOC: EDUNIT# 22:16 → ER 22:19
DX: K05.6 Periodontal disease, unspecified (principal); K02.9 Dental caries, unspecified; Z28.310 Unvaccinated for COVID-19
CPT/HCPCS: 99283